=== PATIENT | male | born 1985 | race Caucasian/White ===

== ENCOUNTER 2023-11-23 12:09 | Emergency (ER) | payer SELFPAY ==
[2023-11-23 12:34] VITALS: BP 116/60; PULSE 89; RESP 16; TEMP 98.6; BMI 30.1
[2023-11-23] MEDS ORDERED: ACETAMINOPHEN 325 MG TABLET (FP) ONE (15:15)
[2023-11-23] MEDS: ACETAMINOPHEN 325 MG TABLET (FP) PO ONE (15:18)
== END 2023-11-23 16:47 | disposition home or self-care (01) ==
LOC: JER 12:09
DX: R51.9 Headache, unspecified (principal); M25.511 Pain in right shoulder; W20.8XXA Other cause of strike by thrown, projected or falling object, initial encounter; Y92.009 Unspecified place in unspecified non-institutional (private) residence as the place of occurrence of the external cause
CPT/HCPCS: 70450-TC; 73030-TC-RT-FY; 99284-25